=== PATIENT | female | born 1960 | race African-American/Black ===

== ENCOUNTER 2016-09-26 11:53 | Emergency (ER) | payer MEDICARE, MEDICAID ==
[~2016-09-26] VITALS: Ht 157.5 cm; Wt 82.1 kg
[~2016-09-26 11:53] MED LIST: COMBIVENT HHN; NORCO 10/3251 EA ORAL; SOMA350 MG PO; XANAX2 MG ORAL
[2016-09-26 12:20] VITALS: BP 124/77
[2016-09-26] MEDS ORDERED: OXYCONTIN20 MG ORAL (12:25)
[2016-09-26] MEDS ORDERED: Oxycodone/Acetaminophen 5-325 ORAL ONE (12:45)
--- NOTE | 2016-09-26 13:42 | Diagnostic Imaging Report ---
Indication: Cough Comparison: 11/12/10 A single view chest radiograph was obtained. Findings: Cardiomediastinal appearance is within normal limits for age. Pulmonary vascularity is appropriate. The diaphragmatic contour is smooth and costophrenic angles are sharp. No pleural effusions are identified. The bones are unremarkable. Impression: No acute findings
--- NOTE | 2016-09-26 13:57 | Emergency Room Report ---
History of Present Illness General Chief Complaint: Pain Source: Patient (Stephanie Blake) Present Illness HPI 56-year-old female presents emergency department complaining of 10/10 in severity right shoulder pain. Patient states she has a history of arthritis in the neck and states that now she is having pain in the right shoulder. Patient denies recent fall or trauma however she states she has pain upon lifting her right arm. Patient denies weakness. The patient also reports intermittent productive cough x2 weeks .Denies fevers or chills. Patient reports ill contacts she denies recent travels. Denies numbness tingling or loss of sensation or gross motor movements of the extremities, incontinence of bowel or bladder. Denies CP, Palpitations, LOC, AMS, dizziness, Changes in Vision, Sensation, paresthesias, or a sudden severe headache. (Stephanie Blake) Allergies: Coded Allergies: PENICILLINS (Verified Allergy, Rash, 12/16/13) Patient History Past Medical History: see triage record Past Surgical History: none Pertinent Family History: none Last Menstrual Period: Partial hysterectomy 2002 Now: No : 5 Para: 5 Immunizations: UTD Reviewed Nursing Documentation: PMH: Agreed, PSxH: Agreed (Stephanie Blake) Nursing Documentation-PMH Hx Asthma: Yes (Stephanie Blake) Review of Systems All Other Systems: negative except mentioned in HPI (Stephanie Blake) Physical Exam Vital Signs Date Time Temp Pulse Resp B/P Pulse Ox O2 Delivery O2 Flow Rate FiO2 09/26/16 12:17 98.1 94 16 124/77 98 Room Air Sp02 EP Interpretation: reviewed, normal General Appearance: no apparent distress, alert, GCS 15, non-toxic Head: normocephalic, atraumatic Eyes: bilateral eye PERRL, bilateral eye normal inspection ENT: hearing grossly normal, normal pharynx, no angioedema, normal voice Neck: full range of motion, supple/symm/no masses Respiratory: chest non-tender, lungs clear, normal breath sounds, no rhonchi, no respiratory distress, no retraction, no wheezing, speaking full sentences Cardiovascular #1: regular rate, rhythm, no edema Gastrointestinal: no rebound Rectal: deferred Musculoskeletal: back normal, gait/station normal, normal range of motion, no calf tenderness, tender - right anterior shoulder TTP, and Pain with elevation from resting position, pt. has pain with motion in all directions of the shoulder, no obvious deformity, no bruising noted. 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 Neurologic: alert, oriented x3, responsive, motor strength/tone normal, sensory intact, speech normal Psychiatric: judgement/insight normal, memory normal, mood/affect normal, no suicidal/homicidal ideation Skin: normal color, no rash, warm/dry, well hydrated Lymphatic: no adenopathy (Stephanie Blake) Medical Decision Making PA Attestation Dr. Sanchez is my supervising Physician whom patient management has been discussed with. (Stephanie Blake) Diagnostic Impression: Primary Impression: Shoulder pain, right Qualified Codes: M25.511 - Pain in right shoulder; G89.29 - Other chronic pain Additional Impression: Viral URI with cough ER Course Pt. presents to the ED c/o 05/16 right shoulder pain x 1 week , denies fall or trauma. Patient also complains of intermittent productive cough x2 weeks denies fevers or chills. Patient reports coughing up green sputum.. Ddx considered but are not limited to Fracture, dislocation, contusion, Sprain/ Strain/Spasm, Uri, Pneumonia Vital signs: are WNL, pt. is afebrile H&PE are most consistent with possible arthritic shoulder and viral URI will r/ o fracture and pneumonia with imaging. ORDERS: - X-ray Right shoulder 3 views - negative for fx, Dislocation, or significant soft tissue injury, per official radiology report. - CXR: No consolidation, effusion, pneumothorax or acute cardiopulmonary findings per official radiology report. ED INTERVENTIONS: - 5mg Percocet PO DISCHARGE: At this time pt. is stable for d/c to home. Will provide printed patient care instructions, and any necessary prescriptions. Care plan and follow up instructions have been discussed with the patient prior to discharge. (Stephanie Blake) ER Course Agree with PA obtained HPI, PE, Assessment/Plan and interpretation of imaging and /or rhythm strip. (SHAWN SANCHEZ M.D.) Last Vital Signs Date Time Temp Pulse Resp B/P Pulse Ox O2 Delivery O2 Flow Rate FiO2 09/26/16 13:40 98.1 2/20/17 12:20 16 124/77 98 Room Air 09/26/16 12:17 94 (Stephanie Blake) Disposition: HOME, SELF-CARE Condition: Stable Scripts D-Methorphan Hb/Prometh Hcl* (PROMETHAZINE-DM SYRUP*) 118 Ml Syrup 5 ML ORAL Q6H Y for For Cough, #118 ML 0 Refills Prov: Stephanie Blake 09/26/16 Ibuprofen* (MOTRIN*) 600 Mg Tablet 600 MG ORAL THREE TIMES A DAY, #30 TAB 0 Refills Prov: Stephanie Blake 09/26/16 Referrals: NOT CHOSEN IPA/MD,REFERRING (PCP) Patient Instructions: Shoulder Pain, Inau-te-Ogwe, Upper Respiratory Infection , Adult, [id number] Additional Instructions: Take medications as directed. Follow up with PCP in 3-5 days * Recommend followup with neurologist Return sooner to ED if new symptoms occur, or current symptoms become worse. Do not drink alcohol, drive, or operate heavy machinery while taking Cough Syrup as this may cause drowsiness. - Please note that this Emergency Department Report was dictated using [employer] specialist technology software, occasionally this can lead to erroneous entry secondary to interpretation by the dictation equipment. Stephanie Blake Sep 26, 2016 13:57 SHAWN SANCHEZ M.D. Oct 01, 2016 14:12
[2016-09-26] MEDS ORDERED: PROMETHAZINE-D118 ML ORAL (14:02)
[2016-09-26] MEDS ORDERED: IBUPROFEN600 MG ORAL (14:02)
[2016-09-26 14:15] VITALS: BP 124/77
--- NOTE | 2016-09-26 16:04 | Diagnostic Imaging Report ---
Indication: Pain Findings: 3 views of the right shoulder were obtained. No acute fractures, malalignment, erosions or periostitis are identified. Bone mineralization is within normal limits. Soft tissues are unremarkable. Impression: Negative examination of the shoulder.
== END 2016-09-26 14:18 | disposition home or self-care (01) ==
LOC: EMR 13:00
DX: M25.511 Pain in right shoulder (principal); J06.9 Acute upper respiratory infection, unspecified; Z88.0 Allergy status to penicillin; J45.909 Unspecified asthma, uncomplicated
CPT/HCPCS: 71010; 99284